=== PATIENT | female | born 1960 | race Caucasian/White ===

== ENCOUNTER → 2016-07-26 | Day surgery (SDC) | payer BC | LOC: OPS 09:04 | PROC: 0DB48ZX Excision of Esophagogastric Junction, Via Natural or Artificial Opening Endoscopic, Diagnostic (ICD-10-PCS; principal; 2016-07-26) | DX: K21.9 Gastro-esophageal reflux disease without esophagitis (principal); R10.13 Epigastric pain; M19.90 Unspecified osteoarthritis, unspecified site; I34.1 Nonrheumatic mitral (valve) prolapse; G47.00 Insomnia, unspecified; E78.5 Hyperlipidemia, unspecified; R53.83 Other fatigue; E04.0 Nontoxic diffuse goiter; G47.30 Sleep apnea, unspecified; D34 Benign neoplasm of thyroid gland; I86.8 Varicose veins of other specified sites; E55.9 Vitamin D deficiency, unspecified; J44.9 Chronic obstructive pulmonary disease, unspecified; F17.210 Nicotine dependence, cigarettes, uncomplicated; Z90.710 Acquired absence of both cervix and uterus; Z98.890 Other specified postprocedural states; R12 Heartburn; Z88.2 Allergy status to sulfonamides; Z79.82 Long term (current) use of aspirin; Z79.899 Other long term (current) drug therapy | CPT/HCPCS: 94664; 99070; J2704 ==

== ENCOUNTER 2016-08-27 05:42 | Emergency (ER) | payer BC | END 2016-08-27 06:21 | disposition home or self-care (01) | LOC: ER 05:42 | DX: L30.9 Dermatitis, unspecified (principal); R13.10 Dysphagia, unspecified; R22.1 Localized swelling, mass and lump, neck; K22.70 Barrett's esophagus without dysplasia; K29.70 Gastritis, unspecified, without bleeding; F17.210 Nicotine dependence, cigarettes, uncomplicated; Z88.2 Allergy status to sulfonamides; Z79.899 Other long term (current) drug therapy; Z79.82 Long term (current) use of aspirin ==